=== PATIENT | male | born 1970 | race Caucasian/White ===

== ENCOUNTER 2019-01-13 18:22 | Inpatient (IN) | payer OTHER ==
[2019-01-13 19:56] VITALS: BMI 22.8
--- NOTE | 2019-01-13 21:47 | HP ---
CIWA Score Nausea/Vomitin-Int. Nausea w/Dry Heave Muscle Tremors: 2 Anxiety: 3 Agitation: 0-Normal Activity Paroxysmal Sweats: 2 Orientation: 0-Oriented Tacttile Disturbances: 2-Mild Itch/Numbness/Burn Auditory Disturbances: 2-Mild Harshness/Frighten Visual Disturbances: 2-Mild Sensitivity Headache: 3-Moderate CIWA-Ar Total Score: 20 - Admission Criteria OASAS Guidelines: Admission for Medically Managed Detox: Requires at least one of the followin. CIWA greater than 12 2. Seizures within the past 24 hours 3. Delirium tremens within the past 24 hours 4. Hallucinations within the past 24 hours 5. Acute intervention needed for co occurring medical disorder 6. Acute intervention needed for co occurring psychiatric disorder 7. Severe withdrawal that cannot be handled at a lower level of care (continued vomiting, continued diarrhea, abnormal vital signs) requiring intravenous medication and/or fluids 8. Patient presents the following: CIWA greater than 12 Admission Criteria Met: Admission criteria met Admission ROS BHS - HPI Chief Complaint: " I don't feel well" Allergies/Adverse Reactions: Allergies Allergy/AdvReac Type Severity Reaction Status Date / Time No Known Allergies Allergy Verified 01/13/19 19:43 History of Present Illness: Patient is a 48 yo male with hx of nicotine, alcohol, xanax and klonopin dependence is here seeking detox. Patient reports he was referred today by [facility] after presenting to emergency department post seizure this morning. 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 DEBI = 0.00. utox positive for MTD, MOP, BRI, FEN , THC. PMHX: weight loss , sciatica. Denies psych hx. Denies SI/HI. Reports last detox at [facility] one month ago. reports currently linked MMTP at [facility] on 70 mg, last dose today, dose pending verification. Exam Limitations: No Limitations - Ebola screening Have you traveled outside of the country in the last 21 days: No (N) Have you had contact with anyone from an Ebola affected area: No Do you have a fever: No - Review of Systems Constitutional: See HPI, Chills, Diaphoresis, Weakness, Unintentional Wgt. Loss (reports went from 225 to 168 lbs in 90 days) EENT: reports: Other (light sensitivity) Respiratory: reports: No Symptoms reported Cardiac: reports: No Symptoms Reported GI: reports: Nausea, Poor Appetite, Poor Fluid Intake, Vomiting, Abdominal cramping : reports: No Symptoms Reported Musculoskeletal: reports: Back Pain, Other (bilteral leg pain) Integumentary: reports: Sweating Neuro: reports: Headache, Numbness (both feet), Dizziness Endocrine: reports: Intolerance to Cold Hematology: reports: No Symptoms Reported Psychiatric: reports: Orientated x3, Anxious Other Systems: Reviewed and Negative Patient History - Patient Medical History Hx Anemia: No Hx Asthma: No Hx Chronic Obstructive Pulmonary Disease (COPD): No Hx Cancer: No Hx Cardiac Disorders: No Hx Congestive Heart Failure: No Hx Hypertension: No Hx Hypercholesterolemia: No Hx Pacemaker: No HX Cerebrovascular Accident: No Hx Seizures: No Hx Dementia: No Hx Diabetes: No Hx Gastrointestinal Disorders: No Hx Liver Disease: No Hx Genitourinary Disorders: No Hx Sexually Transmitted Disorders: No Hx Renal Disease (ESRD): No Hx Thyroid Disease: No Hx Human Immunodeficiency Virus (HIV): No Hx Hepatitis C: No Hx Depression: No Hx Suicide Attempt: No Hx Bipolar Disorder: No Hx Schizophrenia: No - Patient Surgical History Past Surgical History: No - PPD History Previous Implant?: No Documented Results: Negative w/o proof PPD to be Administered?: Yes - Smoking Cessation Smoking history: Current every day smoker Have you smoked in the past 12 months: Yes Aproximately how many cigarettes per day: 8 Hx Chewing Tobacco Use: No Initiated information on smoking cessation: Yes 'Breaking Loose' booklet given: 01/13/19 - Substance & Tx. History Hx Alcohol Use: Yes Hx Substance Use: Yes Substance Use Type: Alcohol, Cocaine, Tranquilizers Hx Substance Use Treatment: Yes (Last detox [facility] one month ago) - Substances abused Benzodiazepine (Klonopin) Substance route: Oral Frequency: Daily Amount used: 5 pills of 2 mg Age of first use: 32 Date of last use: 01/13/19 Alcohol Substance route: Oral Frequency: Daily Amount used: 2 pints of gins + 1-2 six pack of beer Age of first use: 13 Date of last use: 01/13/19 Cocaine Substance route: Inhalation Frequency: Daily Amount used: 8 grams Age of first use: 18 Date of last use: 01/13/19 Heroin Substance route: Injection Frequency: Daily Amount used: 1 bag and a half Age of first use: 18 Date of last use: 01/13/19 Family Disease History - Family Disease History Family Disease History: Other: Father (IVDU, AIDS , ), Mother (IVDU, AIDS , ) Admission Physical Exam [facility] - Vital Signs Vital Signs: Vital Signs - 24 hr 01/13/19 19:41 Temperature 97.8 F Pulse Rate 168 H Respiratory 18 Rate Blood Pressure 113/65 - Physical General Appearance: Yes: Appropriately Dressed, Moderate Distress, Thin, Anxious HEENTM: Yes: EOMI, Hearing grossly Normal, Normal ENT Inspection, Pharynx Normal , Tm's normal, Other (cheilits) Respiratory: Yes: Chest Non-Tender, Lungs Clear, Normal Breath Sounds, No Respiratory Distress, No Accessory Muscle Use Neck: Yes: Within Normal Limits Breast: Yes: Breast Exam Deferred Cardiology: Yes: Regular Rhythm Abdominal: Yes: Normal Bowel Sounds, Non Tender, Flat Genitourinary: Yes: Within Normal Limits Back: Yes: Normal Inspection Musculoskeletal: Yes: full range of Motion, Gait Steady, Pelvis Stable, Back pain Extremities: Yes: Normal Capillary Refill, Normal Inspection, Normal Range of Motion, Non-Tender 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: 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: 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, Fully Oriented, Motor Strength 5/5, Depressed Affect Integumentary: Yes: Normal Color, Warm, Diaphoresis Lymphatic: Yes: Within Normal Limits - Diagnostic (1) Alcohol dependence with uncomplicated withdrawal Current Visit: Yes Status: Acute (2) Cocaine dependence Current Visit: Yes Status: Acute Qualifiers: Substance use status: uncomplicated Qualified Code(s): F14.20 - Cocaine dependence, uncomplicated (3) Opioid dependence on agonist therapy Current Visit: Yes Status: Chronic (4) Back pain Current Visit: Yes Status: Chronic Qualifiers: Back pain location: low back pain (5) History of seizure Current Visit: Yes Status: Acute Cleared for Admission [facility] - Detox or Rehab [facility] Level of Care: Medically Managed Detox Regimen/Protocol: Librium Urine Drug Screen - Results Drug screen NEGATIVE: No Urine drug screen results: THC-Marijuana, BRI-Cocaine, FEN-Fentanyl, MOP-Opiates , MTD-Methadone Inpatient Rehab Admission - Rehab Decision to Admit Inpatient rehab admission?: No
[2019-01-13] MEDS ORDERED: MAG HYDROX/AL HYDROX/SIMETH 30 ML UNIT-DOSE CUP PO PRN (21:54)
[2019-01-13] MEDS ORDERED: MAGNESIUM HYDROX 2400MG/30ML ORAL SUSPENSION 30 ML CUP PO PRN (21:54)
[2019-01-13] MEDS ORDERED: MENTHOL/PHENOL 1 EACH UD MM PRN (21:54)
[2019-01-13] MEDS ORDERED: NICOTINE POLACRILEX 2 MG GUM BUC PRN (21:54)
[2019-01-13] MEDS ORDERED: MELATONIN 5 MG TABLETS PO PRN (21:54)
[2019-01-13] MEDS ORDERED: BISMUTH SUBSALICYLATE 524 MG/30 ML UD PO PRN (21:54)
[2019-01-13] MEDS ORDERED: hydrOXYzine HCL 25 MG TABLET (FP) PO PRN (21:54)
[2019-01-13] MEDS ORDERED: MAGNESIUM CITRATE 300 ML BOTTLE PO PRN (21:54)
[2019-01-13] MEDS ORDERED: ACETAMINOPHEN 325 MG TABLET (FP) PO PRN ×2 (21:54)
[2019-01-13] MEDS ORDERED: IBUPROFEN 400 MG TABLET (FP) PO PRN (21:54)
[2019-01-13] MEDS ORDERED: DICYCLOMINE HCL 10 MG CAPSULE PO PRN (21:58)
[2019-01-13] MEDS: chlordiazePOXIDE HCL 25 MG CAPSULE PO SCH (23:53)
[2019-01-13] MEDS: THIAMINE HCL 100 MG TABLET (FP) PO SCH (23:54)
[2019-01-14] MEDS: chlordiazePOXIDE HCL 25 MG CAPSULE PO SCH ×4 (05:37→22:41)
[2019-01-14] MEDS: chlordiazePOXIDE HCL 25 MG CAPSULE PO PRN (07:59)
[2019-01-14] MEDS: METHOCARBAMOL 500 MG TABLET PO PRN ×2 (08:00→17:22)
[2019-01-14 10:00] LABS: ALBUMIN 2.8 g/dl (3.4-5.0); ALK PHOS 59 U/L (45-117); ANION GAP 6 MMOL/L (8-16); BILIRUBIN,TOTAL 0.2 mg/dL (0.2-1); BLOOD UREA NITROGEN 15 mg/dL (7-18); CALCIUM 8.1 mg/dL (8.5-10.1); CHLORIDE 105 mmol/L (98-107); CO2 31 mmol/L (21-32); CREATININE 0.9 mg/dL (0.55-1.3); GLUCOSE,RANDOM 105 mg/dL (74-106); POTASSIUM 3.7 mmol/L (3.5-5.1); SGOT/AST 30 U/L (15-37); SGPT/ALT 52 U/L (13-61); SODIUM 142 mmol/L (136-145); TOT PROT 5.6 g/dl (6.4-8.2)
[2019-01-14] MEDS ORDERED: NICOTINE 14 MG/24 HOURS TOPICAL PATCH TD SCH (10:00)
[2019-01-14] MEDS ORDERED: METHADONE 40 MG, METHADONE 30 MG PO ONE (10:00)
[2019-01-14] MEDS ORDERED: METHADONE HCL 10 MG TABLET PO ONE (10:00)
[2019-01-14 10:08] LABS: HEMATOCRIT 37.5 % (35.4-49); HEMOGLOBIN 12.8 GM/dL (11.7-16.9); MCH 31.9 pg (25.7-33.7); MCHC 34.1 g/dl (32.0-35.9); MEAN CELL VOLUME 93.5 fl (80-96); MEAN PLT VOLUME 8.8 fl (7.5-11.1); PLATELET COUNT 259 K/MM3 (134-434); RBC 4.01 M/mm3 (4.00-5.60); RDW 13.7 % (11.9-15.9); WHITE BLOOD COUNT 4.6 K/mm3 (4.0-10.0)
[2019-01-14] MEDS ORDERED: METHADONE HCL 10 MG TABLET ONE (10:15)
[2019-01-14] MEDS ORDERED: METHADONE HCL 40 MG DISPERSABLE TABLET ONE (10:16)
[2019-01-14] MEDS: PRENATAL VITAMINS W/ FOLIC ACID TABLET (FP) PO SCH (10:24)
[2019-01-14] MEDS ORDERED: NICOTINE POLACRILEX 4 MG GUM BUC PRN (11:31)
--- NOTE | 2019-01-14 11:37 | PN ---
[facility] CIWA - CIWA Score Nausea/Vomitin-Mild Nausea/No Vomiting Muscle Tremors: 4-Moderate,w/Arms Extend Anxiety: 4-Mod. Anxious/Guarded Agitation: 2 Paroxysmal Sweats: 1-Minimal Palms Moist Orientation: 2-Disoriented Date<2 days Tacttile Disturbances: 0-None Auditory Disturbances: 0-None Visual Disturbances: 0-None Headache: 0-None Present CIWA-Ar Total Score: 14 S Progress Note (SOAP) Subjective: doing well with the detox regimen but chronic right hip pain treated with neurontin patient wants stronger nicotine replacement Objective: 01/14/19 11:36 Vital Signs Temperature 98.1 F 01/14/19 09:11 Pulse Rate 70 01/14/19 09:11 Respiratory Rate 18 01/14/19 09:11 Blood Pressure 108/58 L 01/14/19 09:11 O2 Sat by Pulse Oximetry (%) Laboratory Last Values WBC 4.6 K/mm3 (4.0-10.0) 01/14/19 07:00 RBC 4.01 M/mm3 (4.00-5.60) 01/14/19 07:00 Hgb 12.8 GM/dL (11.7-16.9) 01/14/19 07:00 Hct 37.5 % (35.4-49) 01/14/19 07:00 MCV 93.5 fl (80-96) 01/14/19 07:00 MCH 31.9 pg (25.7-33.7) 01/14/19 07:00 MCHC 34.1 g/dl (32.0-35.9) 01/14/19 07:00 RDW 13.7 % (11.9-15.9) 01/14/19 07:00 Plt Count 259 K/MM3 (134-434) 01/14/19 07:00 MPV 8.8 fl (7.5-11.1) 01/14/19 07:00 Sodium 142 mmol/L (136-145) 01/14/19 07:00 Potassium 3.7 mmol/L (3.5-5.1) 01/14/19 07:00 Chloride 105 mmol/L (98-107) 01/14/19 07:00 Carbon Dioxide 31 mmol/L (21-32) 01/14/19 07:00 Anion Gap 6 MMOL/L (8-16) L 01/14/19 07:00 BUN 15 mg/dL (7-18) 01/14/19 07:00 Creatinine 0.9 mg/dL (0.55-1.3) 01/14/19 07:00 Creat Clearance w eGFR 90.06 (>60) 01/14/19 07:00 Random Glucose 105 mg/dL (74-106) 01/14/19 07:00 Calcium 8.1 mg/dL (8.5-10.1) L 01/14/19 07:00 Total Bilirubin 0.2 mg/dL (0.2-1) 01/14/19 07:00 AST 30 U/L (15-37) 01/14/19 07:00 ALT 52 U/L (13-61) 01/14/19 07:00 Alkaline Phosphatase 59 U/L (45-117) 01/14/19 07:00 Total Protein 5.6 g/dl (6.4-8.2) L 01/14/19 07:00 Albumin 2.8 g/dl (3.4-5.0) L 01/14/19 07:00 RPR Titer Nonreactive (NONREACTIVE) 01/14/19 07:00 lab noted Assessment: 01/14/19 11:36 withdrawal sx Plan: continue detox
[2019-01-14] MEDS: NICOTINE 21 MG/24 HOURS TOPICAL PATCH TD SCH (13:44)
[2019-01-14] MEDS: GABAPENTIN 400 MG CAPSULE (FP) PO SCH ×2 (13:44→22:42)
[2019-01-14 14:00] LABS: EPI CELLS 0.5 /HPF (0-5/HPF); PH,URINE 5.5 (5.0-8.0); URINE APPEARANCE CLEAR; URINE BACTERIA 0.2 /hpf (NEGATIVE); URINE BILIRUBIN NEGATIVE (NEGATIVE); URINE CASTS 0 /hpf (0-8); URINE COLOR YELLOW; URINE GLUCOSE (UA) NEGATIVE (NEGATIVE); URINE KETONE TRACE (NEGATIVE); URINE LEUK ESTERASE NEGATIVE (NEGATIVE); URINE NITRITE NEGATIVE (NEGATIVE); URINE PROTEIN NEGATIVE (NEGATIVE); URINE RBC 7 /hpf (0-4); URINE UROBILINOGEN 0.2 mg/dL (0.2-1.0); URINE WBC 0 /hpf (0-5)
[2019-01-14 14:47] LABS: URINE CRYSTALS CALCIUM OXALATE /hpf
[2019-01-14] MEDS: THIAMINE HCL 100 MG TABLET (FP) PO SCH (22:42)
[2019-01-15] MEDS: chlordiazePOXIDE HCL 25 MG CAPSULE PO PRN (00:23)
[2019-01-15] MEDS: METHOCARBAMOL 500 MG TABLET PO PRN (00:26)
[2019-01-15] MEDS ORDERED: METHADONE HCL 10 MG TABLET ONE ×2 (04:45→09:05)
[2019-01-15] MEDS ORDERED: METHADONE HCL 40 MG DISPERSABLE TABLET ONE ×2 (04:46→09:06)
[2019-01-15] MEDS: GABAPENTIN 400 MG CAPSULE (FP) PO SCH (05:16)
[2019-01-15] MEDS: chlordiazePOXIDE HCL 25 MG CAPSULE PO SCH ×2 (05:16→10:01)
[2019-01-15] MEDS ORDERED: METHADONE 40 MG, METHADONE 30 MG PO SCH ×2 (06:00→10:00)
[2019-01-15] MEDS ORDERED: METHADONE HCL 10 MG TABLET PO SCH (06:00)
[2019-01-15 09:35] VITALS: BP 112/72; PULSE 60; TEMP 97.6
[2019-01-15] MEDS: NICOTINE 21 MG/24 HOURS TOPICAL PATCH TD SCH (10:01)
[2019-01-15] MEDS: PRENATAL VITAMINS W/ FOLIC ACID TABLET (FP) PO SCH (10:01)
--- NOTE | 2019-01-15 11:10 | PN ---
[facility] CIWA - CIWA Score Nausea/Vomitin-Mild Nausea/No Vomiting Muscle Tremors: 1-None Visible, but [place] Anxiety: 1-Mildly Anxious Agitation: 1-Slight > Activity Paroxysmal Sweats: No Perspiration Orientation: 0-Oriented Tacttile Disturbances: 0-None Auditory Disturbances: 0-None Visual Disturbances: 0-None Headache: 0-None Present CIWA-Ar Total Score: 4 S Progress Note (SOAP) Subjective: patient wants klonopin as detox regimen later patient changes his mind that he wants to continue librium protocol patient is alert ambulate on hallway with cane Objective: 01/15/19 11:16 Vital Signs Temperature 97.6 F 01/15/19 09:33 Pulse Rate 60 01/15/19 09:33 Respiratory Rate 18 01/15/19 09:33 Blood Pressure 112/72 01/15/19 09:33 O2 Sat by Pulse Oximetry (%) Laboratory Last Values WBC 4.6 K/mm3 (4.0-10.0) 01/14/19 07:00 RBC 4.01 M/mm3 (4.00-5.60) 01/14/19 07:00 Hgb 12.8 GM/dL (11.7-16.9) 01/14/19 07:00 Hct 37.5 % (35.4-49) 01/14/19 07:00 MCV 93.5 fl (80-96) 01/14/19 07:00 MCH 31.9 pg (25.7-33.7) 01/14/19 07:00 MCHC 34.1 g/dl (32.0-35.9) 01/14/19 07:00 RDW 13.7 % (11.9-15.9) 01/14/19 07:00 Plt Count 259 K/MM3 (134-434) 01/14/19 07:00 MPV 8.8 fl (7.5-11.1) 01/14/19 07:00 Sodium 142 mmol/L (136-145) 01/14/19 07:00 Potassium 3.7 mmol/L (3.5-5.1) 01/14/19 07:00 Chloride 105 mmol/L (98-107) 01/14/19 07:00 Carbon Dioxide 31 mmol/L (21-32) 01/14/19 07:00 Anion Gap 6 MMOL/L (8-16) L 01/14/19 07:00 BUN 15 mg/dL (7-18) 01/14/19 07:00 Creatinine 0.9 mg/dL (0.55-1.3) 01/14/19 07:00 Creat Clearance w eGFR 90.06 (>60) 01/14/19 07:00 Random Glucose 105 mg/dL (74-106) 01/14/19 07:00 Calcium 8.1 mg/dL (8.5-10.1) L 01/14/19 07:00 Total Bilirubin 0.2 mg/dL (0.2-1) 01/14/19 07:00 AST 30 U/L (15-37) 01/14/19 07:00 ALT 52 U/L (13-61) 01/14/19 07:00 Alkaline Phosphatase 59 U/L (45-117) 01/14/19 07:00 Total Protein 5.6 g/dl (6.4-8.2) L 01/14/19 07:00 Albumin 2.8 g/dl (3.4-5.0) L 01/14/19 07:00 Urine Color Yellow 01/13/19 00:00 Urine Appearance Clear 01/13/19 00:00 Urine pH 5.5 (5.0-8.0) 01/13/19 00:00 Ur Specific [place] 1.015 (1.010-1.035) 01/13/19 00:00 Urine Protein Negative (NEGATIVE) 01/13/19 00:00 Urine Glucose (UA) Negative (NEGATIVE) 01/13/19 00:00 Urine Ketones Trace (NEGATIVE) H 01/13/19 00:00 Urine Blood Negative (NEGATIVE) 01/13/19 00:00 Urine Nitrite Negative (NEGATIVE) 01/13/19 00:00 Urine Bilirubin Negative (NEGATIVE) 01/13/19 00:00 Urine Urobilinogen 0.2 mg/dL (0.2-1.0) 01/13/19 00:00 Ur Leukocyte Esterase Negative (NEGATIVE) 01/13/19 00:00 Urine WBC (Auto) 0 /hpf (0-5) 01/13/19 00:00 Urine RBC (Auto) 7 /hpf (0-4) 01/13/19 00:00 Urine Casts (Auto) 0 /hpf (0-8) 01/13/19 00:00 U Epithel Cells (Auto) 0.5 /HPF (0-5/HPF) 01/13/19 00:00 Urine Crystals (Auto) Calcium oxalate /hpf 01/13/19 00:00 Urine Bacteria (Auto) 0.2 /hpf (NEGATIVE) 01/13/19 00:00 RPR Titer Nonreactive (NONREACTIVE) 01/14/19 07:00 lab noted Assessment: 01/15/19 11:16 withdrawal sx Plan: continue detox
--- NOTE | 2019-01-15 16:39 | EKG ---
Test Reason : Blood Pressure : / mmHG Vent. Rate : 068 BPM Atrial Rate : 068 BPM P-R Int : 144 ms QRS Dur : 092 ms QT Int : 408 ms P-R-T Axes : 050 080 066 degrees QTc Int : 433 ms NORMAL SINUS RHYTHM NORMAL ECG NO PREVIOUS ECGS AVAILABLE Confirmed by RUBI MCFADDEN MD ([id number]) on 01/15/2019 4:39:15 PM Referred By: Confirmed By:RUBI MCFADDEN MD
[2019-01-15] MEDS ORDERED: chlordiazePOXIDE HCL 10 MG CAPSULE PO PRN (23:00)
[2019-01-15] MEDS ORDERED: chlordiazePOXIDE HCL 10 MG CAPSULE PO SCH (23:00)
[2019-01-16] MEDS ORDERED: chlordiazePOXIDE HCL 10 MG CAPSULE PO SCH (23:00)
== END 2019-01-15 13:25 | disposition home or self-care (01) | DRG 773 ==
LOC: YASAS 18:22 → Y3N 22:13
PROVIDERS: ADMIT Surgery; ATTEND Surgery
PROC: HZ2ZZZZ Detoxification Services for Substance Abuse Treatment (ICD-10-PCS; principal; 2019-01-13)
DX: F10.230 Alcohol dependence with withdrawal, uncomplicated (principal); F11.20 Opioid dependence, uncomplicated; F14.20 Cocaine dependence, uncomplicated; F17.210 Nicotine dependence, cigarettes, uncomplicated; M54.5 Low back pain; G89.29 Other chronic pain; Z86.69 Personal history of other diseases of the nervous system and sense organs
CPT/HCPCS: 36415; 80053; 81003; 85027; 86593; 93005; 93010

== ENCOUNTER 2020-12-27 17:55 | Inpatient (IN) | payer OTHER ==
[2020-12-27] MEDS ORDERED: MAGNESIUM HYDROX 2400MG/30ML ORAL SUSPENSION 30 ML CUP PO PRN (21:12)
[2020-12-27] MEDS ORDERED: MAG HYDROX/AL HYDROX/SIMETH 30 ML UNIT-DOSE CUP PO PRN (21:12)
[2020-12-27] MEDS ORDERED: METHOCARBAMOL 500 MG TABLET PO PRN (21:12)
[2020-12-27] MEDS ORDERED: ACETAMINOPHEN 325 MG TABLET (FP) PO PRN ×2 (21:12)
[2020-12-27] MEDS ORDERED: BISMUTH SUBSALICYLATE 524 MG/30 ML UD PO PRN (21:12)
[2020-12-27] MEDS ORDERED: MENTHOL/PHENOL 1 EACH UD MM PRN (21:12)
[2020-12-27] MEDS ORDERED: MAGNESIUM CITRATE 300 ML BOTTLE PO PRN (21:12)
[2020-12-27] MEDS ORDERED: chlordiazePOXIDE HCL 25 MG CAPSULE PO PRN (21:23)
[2020-12-27 21:40] VITALS: BMI 18.7
[2020-12-27] MEDS ORDERED: MELATONIN 5 MG TABLETS PO SCH (22:00)
[2020-12-27] MEDS: BACITRACIN 0.9 GM PACKET TP SCH (22:40)
[2020-12-27] MEDS: THIAMINE HCL 100 MG TABLET (FP) PO SCH (22:40)
[2020-12-27] MEDS: chlordiazePOXIDE HCL 25 MG CAPSULE PO SCH (22:42)
[2020-12-28] MEDS: chlordiazePOXIDE HCL 25 MG CAPSULE PO SCH ×4 (05:22→22:15)
[2020-12-28] MEDS: METHADONE HCL 40 MG DISPERSABLE TABLET PO SCH (08:00)
[2020-12-28] MEDS ORDERED: ONDANSETRON *ODT* 4 MG TABLET SL ONE (08:00)
[2020-12-28] MEDS: PRENATAL VITAMINS W/ FOLIC ACID TABLET (FP) PO SCH (10:05)
[2020-12-28] MEDS: cloNIDine HCL 0.1 MG TABLET PO SCH ×2 (10:06→22:15)
[2020-12-28] MEDS: BACITRACIN 0.9 GM PACKET TP SCH ×2 (10:08→22:14)
[2020-12-28] MEDS ORDERED: hydrOXYzine PAMOATE 50 MG CAPSULE (FP) PO PRN (10:12)
[2020-12-28 10:45] LABS: HEMATOCRIT 42.8 % (35.4-49); HEMOGLOBIN 14.4 GM/dL (11.7-16.9); MCH 31.1 pg (25.7-33.7); MCHC 33.7 g/dl (32.0-35.9); MEAN CELL VOLUME 92.2 fl (80-96); MEAN PLT VOLUME 9.5 fl (7.5-11.1); PLATELET COUNT 301 K/MM3 (134-434); RBC 4.64 M/mm3 (4.00-5.60); RDW 15.3 % (11.9-15.9); WHITE BLOOD COUNT 7.7 K/mm3 (4.0-10.0)
[2020-12-28] MEDS: CYPROHEPTADINE HCL 4 MG TABLET PO SCH ×2 (10:48→21:18)
[2020-12-28] MEDS: TRIMETHOBENZAMIDE HCL 300 MG CAPSULE PO PRN (10:48)
[2020-12-28 10:59] LABS: POTASSIUM 4.6 mmol/L (3.5-5.1)
[2020-12-28 11:02] LABS: CALCIUM 9.2 mg/dL (8.5-10.1)
[2020-12-28 11:04] LABS: ALBUMIN 3.5 g/dl (3.4-5.0); BLOOD UREA NITROGEN 13.3 mg/dL (7-18)
[2020-12-28 11:06] LABS: CREATININE 0.9 mg/dL (0.55-1.3)
[2020-12-28 11:08] LABS: BILIRUBIN,TOTAL 0.7 mg/dL (0.2-1); TOT PROT 7.3 g/dl (6.4-8.2)
[2020-12-28] MEDS ORDERED: hydrOXYzine PAMOATE 25 MG CAPSULE (FP) PO SCH (12:00)
[2020-12-28] MEDS: NICOTINE POLACRILEX 2 MG GUM BUC PRN (15:15)
[2020-12-28] MEDS: THIAMINE HCL 100 MG TABLET (FP) PO SCH (22:15)
[2020-12-28] MEDS: SUVOREXANT 15 MG TABLET PO PRN (22:16)
[2020-12-29] MEDS: chlordiazePOXIDE HCL 25 MG CAPSULE PO SCH ×4 (05:16→22:04)
[2020-12-29] MEDS: METHADONE HCL 40 MG DISPERSABLE TABLET PO SCH (05:17)
[2020-12-29] MEDS: CYPROHEPTADINE HCL 4 MG TABLET PO SCH ×3 (06:45→17:02)
[2020-12-29] MEDS: cloNIDine HCL 0.1 MG TABLET PO SCH ×2 (10:27→22:03)
[2020-12-29] MEDS: PRENATAL VITAMINS W/ FOLIC ACID TABLET (FP) PO SCH (10:27)
[2020-12-29] MEDS: BACITRACIN 0.9 GM PACKET TP SCH ×2 (10:27→22:03)
[2020-12-29] MEDS: TRIMETHOBENZAMIDE HCL 300 MG CAPSULE PO PRN (12:06)
[2020-12-29] MEDS: THIAMINE HCL 100 MG TABLET (FP) PO SCH (22:04)
[2020-12-29] MEDS: SUVOREXANT 15 MG TABLET PO PRN (22:05)
[2020-12-30] MEDS ORDERED: chlordiazePOXIDE HCL 10 MG CAPSULE PO PRN
[2020-12-30] MEDS: METHADONE HCL 40 MG DISPERSABLE TABLET PO SCH (05:11)
[2020-12-30] MEDS: chlordiazePOXIDE HCL 10 MG CAPSULE PO SCH ×4 (05:11→22:09)
[2020-12-30] MEDS: CYPROHEPTADINE HCL 4 MG TABLET PO SCH ×3 (06:06→18:07)
[2020-12-30] MEDS: BACITRACIN 0.9 GM PACKET TP SCH ×2 (10:27→22:11)
[2020-12-30] MEDS: cloNIDine HCL 0.1 MG TABLET PO SCH ×2 (10:27→22:09)
[2020-12-30] MEDS: PRENATAL VITAMINS W/ FOLIC ACID TABLET (FP) PO SCH (10:27)
[2020-12-30] MEDS: NICOTINE POLACRILEX 2 MG GUM BUC PRN (10:29)
[2020-12-30] MEDS: NICOTINE 14 MG/24 HOURS TOPICAL PATCH TD SCH (14:42)
[2020-12-30] MEDS: IBUPROFEN 400 MG TABLET (FP) PO PRN (19:55)
[2020-12-30] MEDS ORDERED: POLYETHYLENE GLYCOL 3350 119 GM BTL PO ONE (20:00)
[2020-12-30] MEDS: THIAMINE HCL 100 MG TABLET (FP) PO SCH (22:07)
[2020-12-30] MEDS: SUVOREXANT 15 MG TABLET PO PRN (22:55)
[2020-12-31] MEDS: chlordiazePOXIDE HCL 10 MG CAPSULE PO SCH ×2 (05:22→17:16)
[2020-12-31] MEDS: METHADONE HCL 40 MG DISPERSABLE TABLET PO SCH (05:22)
[2020-12-31] MEDS: CYPROHEPTADINE HCL 4 MG TABLET PO SCH ×3 (06:40→17:15)
[2020-12-31] MEDS ORDERED: ONDANSETRON *ODT* 4 MG TABLET SL ONE (09:45)
[2020-12-31] MEDS: cloNIDine HCL 0.1 MG TABLET PO SCH ×2 (10:00→22:05)
[2020-12-31] MEDS: NICOTINE 14 MG/24 HOURS TOPICAL PATCH TD SCH (10:00)
[2020-12-31] MEDS: PRENATAL VITAMINS W/ FOLIC ACID TABLET (FP) PO SCH (10:00)
[2020-12-31] MEDS: BACITRACIN 0.9 GM PACKET TP SCH ×2 (10:00→22:05)
[2020-12-31] MEDS: IBUPROFEN 400 MG TABLET (FP) PO PRN ×2 (13:52→20:06)
[2020-12-31] MEDS: GABAPENTIN 100 MG CAPSULE PO PRN (18:50)
[2020-12-31] MEDS: THIAMINE HCL 100 MG TABLET (FP) PO SCH (22:05)
[2020-12-31] MEDS ORDERED: MELATONIN 5 MG TABLETS PO ONE (22:15)
[2021-01-01] MEDS ORDERED: TRIMETHOBENZAMIDE HCL 200MG/2ML INJ IM ONE (00:05)
[2021-01-01] MEDS: TRIMETHOBENZAMIDE HCL 300 MG CAPSULE PO PRN (01:44)
[2021-01-01] MEDS: GABAPENTIN 100 MG CAPSULE PO PRN (01:44)
[2021-01-01] MEDS ORDERED: chlordiazePOXIDE HCL 10 MG CAPSULE PO ONE (05:00)
[2021-01-01] MEDS: METHADONE HCL 40 MG DISPERSABLE TABLET PO SCH (05:13)
[2021-01-01] MEDS: IBUPROFEN 400 MG TABLET (FP) PO PRN (06:17)
[2021-01-01] MEDS: CYPROHEPTADINE HCL 4 MG TABLET PO SCH ×2 (06:42→10:02)
[2021-01-01 06:58] VITALS: TEMP 97.1
[2021-01-01 09:15] VITALS: BP 120/72; PULSE 70
[2021-01-01] MEDS: NICOTINE 14 MG/24 HOURS TOPICAL PATCH TD SCH (10:01)
[2021-01-01] MEDS: PRENATAL VITAMINS W/ FOLIC ACID TABLET (FP) PO SCH (10:01)
[2021-01-01] MEDS: BACITRACIN 0.9 GM PACKET TP SCH (10:01)
[2021-01-01] MEDS: cloNIDine HCL 0.1 MG TABLET PO SCH (11:11)
== END 2021-01-01 10:06 | disposition home or self-care (01) | DRG 773 ==
LOC: YASAS 17:55 → Y3N 21:54
PROVIDERS: ADMIT Allergy & Immunology; ATTEND Allergy & Immunology
PROC: HZ2ZZZZ Detoxification Services for Substance Abuse Treatment (ICD-10-PCS; principal; 2020-12-27)
DX: F11.23 Opioid dependence with withdrawal (principal); F13.20 Sedative, hypnotic or anxiolytic dependence, uncomplicated; F14.20 Cocaine dependence, uncomplicated; F17.211 Nicotine dependence, cigarettes, in remission; R74.01 Elevation of levels of liver transaminase levels; R63.4 Abnormal weight loss; Z68.1 Body mass index [BMI] 19.9 or less, adult
CPT/HCPCS: 36415; 80053; 85027; 86780; C9803; J0735; Q0162; U0003

== ENCOUNTER 2024-01-31 13:32 | Inpatient (IN) | payer OTHER ==
[2024-01-31] MEDS ORDERED: NALOXONE HCL 0.4 MG/ML VIAL IM PRN (15:33)
[2024-01-31] MEDS ORDERED: guaiFENesin 600 MG TABLET.ER (FP) PO PRN (15:33)
[2024-01-31] MEDS ORDERED: MAGNESIUM HYDROX 2400MG/30ML ORAL SUSPENSION 30 ML CUP PO PRN (15:33)
[2024-01-31] MEDS ORDERED: BENZONATATE 200 MG CAPSULE PO PRN (15:33)
[2024-01-31] MEDS ORDERED: BENZOCAINE/MENTHOL (CHLORASEPTIC ) LOZENGE MM PRN (15:33)
[2024-01-31] MEDS ORDERED: NALOXONE HCL (KLOXXADO) 8 MG SPRAY NS PRN (15:33)
[2024-01-31] MEDS ORDERED: POLYETHYLENE GLYCOL (HEALTHYLAX) 3350 17 GM PACKET PO PRN (15:33)
[2024-01-31] MEDS ORDERED: LOPERAMIDE HCL 2 MG CAPSULE PO PRN (15:33)
[2024-01-31 15:49] VITALS: BMI 22.1
[2024-01-31] MEDS: hydrOXYzine PAMOATE 25 MG CAPSULE (FP) PO PRN (17:38)
[2024-01-31] MEDS: IBUPROFEN 600 MG TABLET (FP) PO PRN (17:38)
[2024-01-31] MEDS: MELATONIN 5 MG TABLETS PO SCH (21:13)
[2024-01-31] MEDS: THIAMINE 100 MG TABLET PO SCH (21:13)
[2024-02-01] MEDS ORDERED: TUBERCULIN PPD 5 TU/0.1ML VIAL ID ONE ×2 (09:01→10:20)
[2024-02-01] MEDS: PRENATAL VITAMINS W/ FOLIC ACID TABLET (FP) PO SCH (09:37)
[2024-02-01] MEDS: methaDONE HCL 40 MG DISPERSABLE TABLET PO SCH (09:37)
[2024-02-01] MEDS: hydrOXYzine PAMOATE 25 MG CAPSULE (FP) PO PRN (13:33)
[2024-02-01] MEDS: GABAPENTIN 400 MG CAPSULE PO SCH (13:33)
[2024-02-01] MEDS: QUEtiapine FUMARATE 50 MG TABLET PO SCH (21:07)
[2024-02-02 14:13] LABS: PH,URINE 5.5 (5.0-8.0); URINE APPEARANCE CLEAR; URINE BILIRUBIN NEGATIVE (NEGATIVE); URINE COLOR YELLOW; URINE GLUCOSE (UA) NEGATIVE (NEGATIVE); URINE KETONE NEGATIVE (NEGATIVE); URINE LEUK ESTERASE NEGATIVE (NEGATIVE); URINE NITRITE NEGATIVE (NEGATIVE); URINE PROTEIN NEGATIVE (NEGATIVE); URINE UROBILINOGEN 0.2 mg/dL (0.2-1.0)
[2024-02-03 14:55] LABS: HEMATOCRIT 37.9 % (35.4-49); HEMOGLOBIN 12.5 GM/dL (11.7-16.9); MCH 26.3 pg (25.7-33.7); MCHC 32.8 g/dl (32.0-35.9); MEAN CELL VOLUME 80.2 fl (80-96); PLATELET COUNT 201 10^3/uL (134-434); RBC 4.73 M/mm3 (4.00-5.60); RDW 16.4 % (11.9-15.9); WHITE BLOOD COUNT 4.7 K/mm3 (4.0-10.0)
[2024-02-03 16:23] LABS: SYPHILIS W/ RPR CONF NON-REACTIVE (NONREACTIVE)
[2024-02-03] MEDS: ACETAMINOPHEN 325 MG TABLET (FP) PO PRN (21:35)
[2024-02-05] MEDS: IBUPROFEN 400 MG TABLET (FP) PO PRN (10:06)
[2024-02-05] MEDS: BACLOFEN 10 MG TABLET (FP) PO SCH (15:17)
[2024-02-05] MEDS: QUEtiapine FUMARATE 100 MG TABLET (FP) PO SCH (21:04)
[2024-02-05] MEDS: PRAZOSIN HCL 1 MG CAPSULE PO SCH (21:04)
[2024-02-05] MEDS: METHYL SALICYLATE/MENTHOL OINT 30 GM TUBE TP SCH (21:05)
[2024-02-06] MEDS: BACITRACIN ZINC 15 GM TUBE TOPICAL OINTMENT TP SCH (21:38)
[2024-02-06] MEDS: MAG HYDROX/AL HYDROX/SIMETH 30 ML UNIT-DOSE CUP PO PRN (22:39)
[2024-02-07 14:33] LABS: POTASSIUM 4.2 mmol/L (3.5-5.1)
[2024-02-07 14:36] LABS: ALBUMIN 3.2 g/dl (3.4-5.0); BLOOD UREA NITROGEN 10.2 mg/dL (7-18)
[2024-02-07 14:38] LABS: CREATININE 0.8 mg/dL (0.55-1.3)
[2024-02-07 14:39] LABS: CALCIUM 9.4 mg/dL (8.5-10.1)
[2024-02-07 14:40] LABS: BILIRUBIN,TOTAL 0.2 mg/dL (0.2-1)
[2024-02-10] MEDS ORDERED: BACITRACIN ZINC 15 GM TUBE TOPICAL OINTMENT TP PRN (16:25)
[2024-02-10] MEDS ORDERED: METHYL SALICYLATE/MENTHOL OINT 30 GM TUBE TP PRN (16:25)
[2024-02-10] MEDS: AMMONIUM LACTATE 12% LOTION 225 GM BOTTLE TP SCH (17:40)
[2024-02-13] MEDS ORDERED: AMMONIUM LACTATE 12% LOTION 225 GM BOTTLE TP PRN (11:43)
[2024-02-14] MEDS: QUEtiapine FUMARATE 50 MG TABLET PO SCH (21:05)
[2024-02-15] MEDS: GABAPENTIN 400 MG CAPSULE PO SCH (13:14)
[2024-02-17] MEDS ORDERED: PRENATAL VITAMINS W/ FOLIC ACID TABLET (FP) PO PRN (12:25)
[2024-02-18 07:08] VITALS: BP 124/83; PULSE 79; RESP 18; TEMP 97.7
== END 2024-02-18 07:14 | disposition home or self-care (01) | DRG 772 ==
LOC: YASAS 13:32 → Y3E 16:44
PROVIDERS: ADMIT Allergy & Immunology; ATTEND Psychiatry & Neurology Pain Medicine
PROC: HZ42ZZZ Group Counseling for Substance Abuse Treatment, Cognitive-Behavioral (ICD-10-PCS; principal; 2024-01-31)
DX: F14.20 Cocaine dependence, uncomplicated (principal); F11.20 Opioid dependence, uncomplicated; F12.20 Cannabis dependence, uncomplicated; F43.10 Post-traumatic stress disorder, unspecified; M54.59 Other low back pain; G89.29 Other chronic pain; Z87.891 Personal history of nicotine dependence; Z86.69 Personal history of other diseases of the nervous system and sense organs; Z56.0 Unemployment, unspecified
CPT/HCPCS: 36415; 80053; 80305; 80307; 81003; 85027; 86780; 86803; 87522; 93005; 93010; J0475